=== PATIENT | male | born 1960 | race African-American/Black ===

== ENCOUNTER 2020-05-09 14:27 | Outpatient (CLI) | payer OTHER | END 2020-05-09 14:28 | disposition home or self-care (01) | LOC: CARD 14:27 | PROVIDERS: ATTEND Internal Medicine | DX: I10 Essential (primary) hypertension (principal); E11.9 Type 2 diabetes mellitus without complications; M79.602 Pain in left arm | CPT/HCPCS: 93005 ==

== ENCOUNTER 2021-04-22 09:19 | Emergency (ER) | payer OTHER ==
[2021-04-22 10:59] VITALS: BP 175/68
[2021-04-22] MEDS ORDERED: CYCLOBENZAPRINE 10 MG TAB PO ONE (11:32)
[2021-04-22] MEDS ORDERED: oxyCODONE /ACETAMINOPHEN 5-325MG TAB PO ONE (11:32)
[2021-04-22] MEDS ORDERED: KETOROLAC 30 MG/1 ML INJ IM ONE (11:32)
--- NOTE | 2021-04-22 11:32 | Emergency Department Report ---
ED Back Pain/Injury HPI - General Chief Complaint: Back Pain/Injury Stated Complaint: SEVERE LOWER BACK PAIN x2DAYS Time Seen by Provider: 04/22/21 11:27 Source: patient Limitations: No Limitations - History of Present Illness Initial Comments: CC: back pain HPI: This is a 61 yo male with hx of DM, HTN who presents with severe central lower back pain. Gradual onset yesterday evening. Sharp dull pain 10/10. No treatment attempted at home. He thinks he may have lifted something at work. Pain radiates to RLQ when standing up. Never had pain such as this before. NO hematuria, no leg weakness, no trauma, no fecal/urine incontinence. MD Complaint: back pain -: Gradual, days(s) (yesterday evening worse throughout the night) Similar Symptoms Previously: No Place: home Radiation: other (RLQ) Severity: severe Severity scale (0 -10): 10 Quality: sharp, dull Consistency: constant Improves With: immobilization Worsens With: movement, walking Associated Symptoms: denies other symptoms - Related Data Home Medications Medication Instructions Recorded Confirmed Last Taken Aspirin EC [Halfprin EC] 81 mg PO QDAY 05/26/13 10/22/17 05/23/13 Simvastatin 40 mg PO QDAY 05/26/13 10/22/17 05/24/13 Ergocalciferol [Vitamin D2] 1 cap PO QWEEK 10/22/17 10/22/17 Unknown Insulin NPH Hum/Reg Insulin Hm 30 unit SQ QHS 10/22/17 10/22/17 Unknown [HumuLIN 70-30 Vial] Insulin NPH Hum/Reg Insulin Hm 35 unit SQ QAM 10/22/17 10/22/17 Unknown [HumuLIN 70-30 Vial] hydroCHLOROthiazide [HCTZ] 25 mg PO QDAY 10/22/17 10/22/17 Unknown metFORMIN [Glucophage] 500 mg PO BID 10/22/17 10/22/17 Unknown Previous Rx's Medication Instructions Recorded Last Taken Type Cyclobenzaprine [Flexeril] 10 mg PO TID PRN #30 tablet 04/22/21 Unknown Rx Ibuprofen [Motrin 400 MG tab] 400 mg PO QID 5 Days #20 tablet 04/22/21 Unknown Rx oxyCODONE /ACETAMINOPHEN [Percocet 1 tab PO Q6HR PRN #15 tablet 04/22/21 Unknown Rx 5/325] Allergies Allergy/AdvReac Type Severity Reaction Status Date / Time No Known Allergies Allergy Verified 11/27/14 12:49 ED Review of Systems ROS: Stated complaint: SEVERE LOWER BACK PAIN x2DAYS Other details as noted in HPI Comment: All other systems reviewed and negative Constitutional: denies: fever, malaise Respiratory: denies: cough, shortness of breath Cardiovascular: denies: chest pain Gastrointestinal: abdominal pain. denies: nausea, vomiting Musculoskeletal: back pain Neurological: denies: paresthesias ED Past Medical Hx - Past Medical History Previous Medical History?: Yes Hx Hypertension: Yes Hx Congestive Heart Failure: No Hx Diabetes: Yes Hx Asthma: No Hx COPD: No Hx HIV: No - Surgical History Past Surgical History?: Yes Hx Appendectomy: Yes - Social History Smoking Status: Never Smoker Substance Use Type: None - Medications Home Medications: Home Medications Medication Instructions Recorded Confirmed Last Taken Type Aspirin EC [Halfprin EC] 81 mg PO QDAY 05/26/13 10/22/17 05/23/13 History Simvastatin 40 mg PO QDAY 05/26/13 10/22/17 05/24/13 History Ergocalciferol [Vitamin D2] 1 cap PO QWEEK 10/22/17 10/22/17 Unknown History Insulin NPH Hum/Reg Insulin Hm 30 unit SQ QHS 10/22/17 10/22/17 Unknown History [HumuLIN 70-30 Vial] Insulin NPH Hum/Reg Insulin Hm 35 unit SQ QAM 10/22/17 10/22/17 Unknown History [HumuLIN 70-30 Vial] hydroCHLOROthiazide [HCTZ] 25 mg PO QDAY 10/22/17 10/22/17 Unknown History metFORMIN [Glucophage] 500 mg PO BID 10/22/17 10/22/17 Unknown History Cyclobenzaprine [Flexeril] 10 mg PO TID PRN #30 tablet 04/22/21 Unknown Rx Ibuprofen [Motrin 400 MG tab] 400 mg PO QID 5 Days #20 tablet 04/22/21 Unknown Rx oxyCODONE /ACETAMINOPHEN [Percocet 1 tab PO Q6HR PRN #15 tablet 04/22/21 Unknown Rx 5/325] ED Physical Exam - General Limitations: No Limitations General appearance: alert, in no apparent distress, other (appears in discomfort, slowing raising from chair, walking gingerly to treatment room) - Head Head exam: Present: atraumatic, normocephalic - Eye Eye exam: Present: normal appearance - ENT ENT exam: Present: mucous membranes moist - Neck Neck exam: Present: normal inspection, full ROM - Respiratory Respiratory exam: Present: normal lung sounds bilaterally. Absent: respiratory distress, wheezes, rales, rhonchi, stridor - Cardiovascular Cardiovascular Exam: Present: regular rate, normal rhythm, normal heart sounds. Absent: systolic murmur, diastolic murmur, rubs, gallop - GI/Abdominal GI/Abdominal exam: Present: soft, normal bowel sounds. Absent: distended, tenderness, guarding, rebound - Rectal Rectal exam: Present: deferred - Extremities Exam Extremities exam: Present: normal inspection - Back Exam Back exam: Present: muscle spasm, paraspinal tenderness, other (hesitant to flex and extend back). Absent: CVA tenderness (R), CVA tenderness (L), vertebral tenderness - Neurological Exam Neurological exam: Present: alert, oriented X3 - Psychiatric Psychiatric exam: Present: normal affect, normal mood - Skin Skin exam: Present: warm, dry, intact, normal color. Absent: rash ED Course Vital Signs 04/22/21 10:59 Temperature 98.2 F Pulse Rate 67 Respiratory 16 Rate Blood Pressure 175/68 [Right] O2 Sat by Pulse 96 Oximetry ED Medical Decision Making - Radiology Data Radiology results: report reviewed Study Comments [facility] [address] [place] [address] Cat Scan Report Signed Patient: ERIKA MAN MR#: [id number] : 1960 Acct:[id number] Age/Sex: 61 / M ADM Date: 04/22/21 Loc: ED Attending Dr: Ordering Physician: Janelle Rayo MD Date of Service: 04/22/21 Procedure(s): CT lumbar spine wo con Accession Number(s): [id number] cc: Janelle Rayo MD CT lumbar spine wo con INDICATION: lower back pain radiating to right lower quadrant. TECHNIQUE: All CT scans at this location are performed using the following dose modulation technique: Automated exposure control. CONTRAST: None. COMPARISON: None available. FINDINGS: Satisfactory alignment without vertebral compression. The disc spaces are maintained. Anterior osteophytes are present multiple levels. No large disc herniation is seen. Facet DJD is moderately advanced at L4-5. Milder changes are present at L3-L4 and L5-S1. At least moderate grade canal stenosis at L4-L5 on the basis of facet DJD, ligamentous hypertrophy and disc bulging. IMPRESSION: 1. No bony injury or significant disc space narrowing. 2. Stenosis more localized at L4-L5 on the basis of facet DJD, ligamentous hypertrophy and disc bulging. Signer Name: Antonino Montenegro MD Signed: 04/22/2021 12:39 PM Workstation Name: [id number] Transcribed By: ES Dictated By: Antonino Montenegro MD Electronically Authenticated By: Antonino Montenegro MD Signed Date/Time: 04/22/21 1239 DD/ 1235 Patient Name: ERIKA MAN Gender: Male Date of : 1960 Referring Provider: JANELLE ABERNATHY Organization: [facility] Accession Number: [id number] Requested Date: April 22, 2021 11:27 Report Status: Final Requested Procedure: 1 Procedure Description: CT abdomen pelvis wo con Modality: CT Findings Reporting MD: Antonino Montenegro Dictation Time: April 22, 2021 11:35 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 TECHNIQUE: Axial CT images were obtained through the abdomen and pelvis without IV contrast. All CT scans at this location are performed using CT dose reduction for ALARA by means of automated exposure control. COMPARISON: None available. FINDINGS: LOWER CHEST: Mild mosaic attenuation at the lung bases is most commonly seen in the setting of air trapping. LIVER: No significant abnormality. GALLBLADDER: No significant abnormality. BILE DUCTS: No significant abnormality. PANCREAS: No significant abnormality. SPLEEN: No significant abnormality. ADRENALS: No significant abnormality. RIGHT KIDNEY / URETER: No significant abnormality. LEFT KIDNEY / URETER: Probable small cyst lower pole measuring 1.3 cm. STOMACH / SMALL BOWEL: No significant abnormality. COLON: Moderate stool. APPENDIX: Nonvisualized. PERITONEUM: No free fluid. No free air. No fluid collection. LYMPH NODES: No significant adenopathy. VASCULAR STRUCTURES: No significant abnormality. URINARY BLADDER: Mild symmetric thickening. REPRODUCTIVE ORGANS: Moderate prostate enlargement. ADDITIONAL FINDINGS: None. SKELETAL SYSTEM: No significant abnormality. IMPRESSION: 1. Moderate colonic stool. 2. Negative for obstruction or localized inflammation. 3. Mosaic attenuation at the lung bases is most commonly seen in the setting of air trapping. 4. Prostate enlargement with element of bladder outlet obstruction. Signer Name: Antonino Montenegro MD Signed: 04/22/2021 11:35 AM Workstation Name: [email or web address] - Medical Decision Making This is a 59-year-old male history of hypertension, diabetes mellitus who presents with severe pain. CT lumbar spine revealed lumbar stenosis with degenerative disc disease. I gave patient verbal and written education. I contacted spine surgeon/specialist Dr. Cantu. He will arrange his office staff to contact Mr. Man for appointment. Patient is neurovascularly intact. I have prescribed ibuprofen and Percocet Flexeril. He understands return precautions including leg weakness and fecal urinary ncontinence. Patient improved with ED medications which included: IM ketorolac, p.o. Percocet and p.o. Flexeril. Critical care attestation.: If time is entered above; I have spent that time in minutes in the direct care of this critically ill patient, excluding procedure time. ED Disposition Clinical Impression: Lumbar stenosis, Herniation of right side of L4-L5 intervertebral disc Disposition: DC-01 TO HOME OR SELFCARE Is pt being admited?: No Does the pt Need Aspirin: No Condition: Stable Instructions: Spinal Stenosis, Degenerative Disk Disease Prescriptions: Cyclobenzaprine [Flexeril] 10 mg PO TID PRN #30 tablet PRN Reason: Muscle Spasm Ibuprofen [Motrin 400 MG tab] 400 mg PO QID 5 Days #20 tablet oxyCODONE /ACETAMINOPHEN [Percocet 5/325] 1 tab PO Q6HR PRN #15 tablet PRN Reason: Pain Referrals: ELDON CANTU II, MD [Staff Physician] - 2-3 Days
--- NOTE | 2021-04-22 12:39 | Cat Scan Report ---
CT ABDOMEN AND PELVIS WITHOUT CONTRAST INDICATION / CLINICAL INFORMATION: lower back pain radiating to right lower quadrant. TECHNIQUE: Axial CT images were obtained through the abdomen and pelvis without IV contrast. All CT scans at this location are performed using CT dose reduction for ALARA by means of automated exposure control. COMPARISON: None available. FINDINGS: LOWER CHEST: Mild mosaic attenuation at the lung bases is most commonly seen in the setting of air tr apping. LIVER: No significant abnormality. GALLBLADDER: No significant abnormality. BILE DUCTS: No significant abnormality. PANCREAS: No significant abnormality. SPLEEN: No significant abnormality. ADRENALS: No significant abnormality. RIGHT KIDNEY / URETER: No significant abnormality. LEFT KIDNEY / URETER: Probable small cyst lower pole measuring 1.3 cm. STOMACH / SMALL BOWEL: No significant abnormality. COLON: Moderate stool. APPENDIX: Nonvisualized. PERITONEUM: No free fluid. No free air. No fluid collection. LYMPH NODES: No significant adenopathy. VASCULAR STRUCTURES: No significant abnormality. URINARY BLADDER: Mild symmetric thickening. REPRODUCTIVE ORGANS: Moderate prostate enlargement. ADDITIONAL FINDINGS: None. SKELETAL SYSTEM: No significant abnormality. IMPRESSION: 1. Moderate colonic stool. 2. Negative for obstruction or localized inflammation. 3. Mosaic attenuation at the lung bases is most commonly seen in the setting of air trapping. 4. Prostate enlargement with element of bladder outlet obstruction. Signer Name: Antonino Montenegro MD Signed: 04/22/2021 12:35 PM Workstation Name: [id number]
--- NOTE | 2021-04-22 12:43 | Cat Scan Report ---
CT lumbar spine wo con INDICATION: lower back pain radiating to right lower quadrant. TECHNIQUE: All CT scans at this location are performed using the following dose modulation technique: Automated exposure control. CONTRAST: None. COMPARISON: None available. FINDINGS: Satisfactory alignment without vertebral compression. The disc spaces are maintained. Anter ior osteophytes are present multiple levels. No large disc herniation is seen. Facet DJD is moderately advanced at L4-5. Milder changes are presen t at L3-L4 and L5-S1. At least moderate grade canal stenosis at L4-L5 on the basis of facet DJD, ligamentous hypertrophy an d disc bulging. IMPRESSION: 1. No bony injury or significant disc space narrowing. 2. Stenosis more localized at L4-L5 on the basis of facet DJD, ligamentous hypertrophy and disc bulgi ng. Signer Name: Antonino Montenegro MD Signed: 04/22/2021 12:39 PM Workstation Name: [id number]
== END 2021-04-22 13:44 | disposition home or self-care (01) ==
LOC: ED 09:19
DX: M48.061 Spinal stenosis, lumbar region without neurogenic claudication (principal); M51.26 Other intervertebral disc displacement, lumbar region; R10.32 Left lower quadrant pain; E11.9 Type 2 diabetes mellitus without complications; I10 Essential (primary) hypertension; Z90.49 Acquired absence of other specified parts of digestive tract; Z79.82 Long term (current) use of aspirin; Z79.899 Other long term (current) drug therapy
CPT/HCPCS: 72131; 74176; 82962; 96372; 99284; J1885

== ENCOUNTER 2021-11-22 17:59 | Emergency (ER) | payer OTHER ==
[2021-11-22 18:19] VITALS: BP 139/60
[2021-11-22] MEDS ORDERED: ACETAMINOPHEN 500 MG TAB PO ONE (22:37)
--- NOTE | 2021-11-22 22:55 | Emergency Department Report ---
ED Fall HPI - General Chief Complaint: Fall Stated Complaint: HEAD INJURY Time Seen by Provider: 11/22/21 22:35 Source: patient Mode of arrival: Ambulatory - History of Present Illness Initial Comments: Patient 61-year-old male who presents status post ground-level fall impacting his left parietal head. Patient with notable bruising and swelling. Patient denies LOC, patient was immediately amatory after fall and moving on his own power. Patient states he tripped while going to the mailbox. Drove self to ED tonight patient is alert oriented x3 and amatory with steady gait. Patient does complain of 5/10 headache described as throbbing aching and posterior neck pain 5/10 exacerbated by movement. Patient denies dizziness, no nausea no vomiting. No decrease or loss of vision. Patient has history of diabetes type 2. There is no active bleeding or open wound noted at this time. Patient denies other exacerbating or relieving factors. MD Complaint: fall - Related Data Home Medications Medication Instructions Recorded Confirmed Last Taken Aspirin EC [Halfprin EC] 81 mg PO QDAY 05/26/13 10/22/17 05/23/13 Simvastatin 40 mg PO QDAY 05/26/13 10/22/17 05/24/13 Ergocalciferol [Vitamin D2] 1 cap PO QWEEK 10/22/17 10/22/17 Unknown Insulin NPH Hum/Reg Insulin Hm 30 unit SQ QHS 10/22/17 10/22/17 Unknown [HumuLIN 70-30 Vial] Insulin NPH Hum/Reg Insulin Hm 35 unit SQ QAM 10/22/17 10/22/17 Unknown [HumuLIN 70-30 Vial] hydroCHLOROthiazide [HCTZ] 25 mg PO QDAY 10/22/17 10/22/17 Unknown metFORMIN [Glucophage] 500 mg PO BID 10/22/17 10/22/17 Unknown Previous Rx's Medication Instructions Recorded Last Taken Type Cyclobenzaprine [Flexeril] 10 mg PO TID PRN #30 tablet 04/22/21 Unknown Rx Ibuprofen [Motrin 400 MG tab] 400 mg PO QID 5 Days #20 tablet 04/22/21 Unknown Rx oxyCODONE /ACETAMINOPHEN [Percocet 1 tab PO Q6HR PRN #15 tablet 04/22/21 Unknown Rx 5/325] Acetaminophen/Codeine [Tylenol 1 tab PO Q6H PRN #12 tab 11/23/21 Unknown Rx /Codeine # 3 tab] Allergies Allergy/AdvReac Type Severity Reaction Status Date / Time No Known Allergies Allergy Verified 11/27/14 12:49 ED Review of Systems ROS: Stated complaint: HEAD INJURY Other details as noted in HPI Constitutional: denies: chills, fever Eyes: denies: eye pain, eye discharge, vision change ENT: denies: ear pain, throat pain Respiratory: denies: cough, shortness of breath, wheezing Cardiovascular: as per HPI Endocrine: no symptoms reported Gastrointestinal: as per HPI Genitourinary: denies: urgency, dysuria Musculoskeletal: other (Neck pain) Skin: other (Abrasion left anterior parietal head) Neurological: headache. denies: weakness, numbness, paresthesias, confusion, vertigo Psychiatric: denies: anxiety, depression Hematological/Lymphatic: denies: easy bleeding, easy bruising ED Past Medical Hx - Past Medical History Hx Hypertension: Yes Hx Congestive Heart Failure: No Hx Diabetes: Yes Hx Asthma: No Hx COPD: No Hx HIV: No - Surgical History Hx Appendectomy: Yes - Social History Smoking Status: Never Smoker Substance Use Type: None - Medications Home Medications: Home Medications Medication Instructions Recorded Confirmed Last Taken Type Aspirin EC [Halfprin EC] 81 mg PO QDAY 05/26/13 10/22/17 05/23/13 History Simvastatin 40 mg PO QDAY 05/26/13 10/22/17 05/24/13 History Ergocalciferol [Vitamin D2] 1 cap PO QWEEK 10/22/17 10/22/17 Unknown History Insulin NPH Hum/Reg Insulin Hm 30 unit SQ QHS 10/22/17 10/22/17 Unknown History [HumuLIN 70-30 Vial] Insulin NPH Hum/Reg Insulin Hm 35 unit SQ QAM 10/22/17 10/22/17 Unknown History [HumuLIN 70-30 Vial] hydroCHLOROthiazide [HCTZ] 25 mg PO QDAY 10/22/17 10/22/17 Unknown History metFORMIN [Glucophage] 500 mg PO BID 10/22/17 10/22/17 Unknown History Cyclobenzaprine [Flexeril] 10 mg PO TID PRN #30 tablet 04/22/21 Unknown Rx Ibuprofen [Motrin 400 MG tab] 400 mg PO QID 5 Days #20 tablet 04/22/21 Unknown Rx oxyCODONE /ACETAMINOPHEN [Percocet 1 tab PO Q6HR PRN #15 tablet 04/22/21 Unknown Rx 5/325] Acetaminophen/Codeine [Tylenol 1 tab PO Q6H PRN #12 tab 11/23/21 Unknown Rx /Codeine # 3 tab] ED Physical Exam - General Limitations: No Limitations General appearance: alert, in no apparent distress - Head Head exam: Present: normocephalic, normal inspection - Expanded Head Exam Expanded Head exam: Present: abrasion, contusion (Left lateral parietal). Absent: hematoma, racoon eyes, salomon's sign, general tenderness, tenderness of temporal artery - Eye Eye exam: Present: PERRL, EOMI. Absent: conjunctival injection, nystagmus Pupils: Present: normal accommodation - ENT ENT exam: Present: normal orophraynx, mucous membranes moist, TM's normal bilaterally, normal external ear exam - Neck Neck exam: Present: normal inspection, tenderness (Mild paraspinous muscular pain to deep palpation range of motion intact unrestricted in all quadrants no ecchymosis no swelling no bruises no deformity), full ROM. Absent: meningismus - Expanded Neck Exam Expanded Neck exam: Absent: midline deformity, anterior neck swelling, thyroid mass, carotid bruit, tracheal deviation - Respiratory Respiratory exam: Present: normal lung sounds bilaterally. Absent: respiratory distress, wheezes, stridor, chest wall tenderness - Cardiovascular Cardiovascular Exam: Present: regular rate, normal rhythm, normal heart sounds. Absent: systolic murmur, diastolic murmur, rubs, gallop - GI/Abdominal GI/Abdominal exam: Present: soft, normal bowel sounds. Absent: distended, tenderness, guarding, rebound, rigid, bruit, hernia - Rectal Rectal exam: Present: deferred - Extremities Exam Extremities exam: Present: normal inspection, full ROM, tenderness (Abrasion left anterior knee), normal capillary refill - Expanded Lower Extremity Exam Left Knee exam: Present: abrasion, full knee extension. Absent: laceration, ecchymosis, deformity, crepidus, dislocation, erythema, effusion, pain w/ pronation/supination, posterior draw sign, pain/laxity with valgus, pain/laxity with varus Lower Leg exam: Present: full ROM. Absent: tenderness, swelling Ankle exam: Present: full ROM. Absent: tenderness, swelling Foot/Toe exam: Present: full ROM. Absent: tenderness, swelling Neuro vascular tendon exam: Absent: pulse deficit, motor deficit, sensory deficit, tendon deficit Gait: Positive: observed and normal - Back Exam Back exam: Present: normal inspection, full ROM. Absent: paraspinal tenderness, vertebral tenderness - Neurological Exam Neurological exam: Present: alert, oriented X3, CN II-XII intact, normal gait, reflexes normal. Absent: motor sensory deficit - Expanded Neurological Exam Expanded Patient oriented to: Present: person, place, time Speech: Present: fluid speech Cranial nerves: EOM's Intact: Normal, Gag Reflex: Normal, Tongue Deviation: Normal, Nystagmus: Normal Cerebellar function: Finger to Nose: Normal Motor strength exam: RUE: 5, LUE: 5, RLE: 5, LLE: 5 Best Eye Response ([place]): (4) open spontaneously Best Motor Response ([place]): (6) obeys commands Best Verbal Response ([place]): (5) oriented [place] Total: 15 - Psychiatric Psychiatric exam: Present: normal affect, normal mood - Skin Skin exam: Present: warm, dry, intact, normal color. Absent: rash ED Course Vital Signs 11/22/21 11/22/21 18:18 22:54 Temperature 98.3 F Pulse Rate 71 Respiratory 18 14 Rate Blood Pressure 139/60 O2 Sat by Pulse 98 Oximetry ED Medical Decision Making - Radiology Data Radiology results: report reviewed, image reviewed CT CERVICAL SPINE WITHOUT CONTRAST INDICATION / CLINICAL INFORMATION: Fall with neck injury. TECHNIQUE: Axial CT images were obtained through the cervical spine. Sagittal and coronal reformatted images were produced. All CT scans at this location are performed using CT dose red uction for ALARA by means of automated exposure control. COMPARISON: CT head same date FINDINGS: SKULL BASE: No significant abnormality of the skull base. CRANIOCERVICAL JUNCTION: No significant abnormality of the craniocervical junction. ALIGNMENT: No significant abnormality of alignment. VERTEBRAL BODIES: Vertebral body heights fairly uniform throughout. DISK SPACES: Disk spaces are fairly uniform throughout. FACET JOINTS: Multilevel facet arthropathy with most pronounced hypertrophy at the left facet of C5-6. STENOSIS BY LEVEL: Moderate right neuroforaminal stenosis as a result of uncovertebral joint osteophyte formation at C4-5. CENTRAL CANAL: No significant central stenosis. SOFT TISSUES: No significant abnormality of soft tissues or musculature. THYROID: No significant abnormality. UPPER CHEST: No significant abnormality of the visualized chest. ADDITIONAL FINDINGS: None. IMPRESSION: 1. No acute cervical spine injury. Mild to moderate diffuse degenerative changes. Signer Name: Jenaro Barber II, MD Signed: 11/23/2021 12:02 AM Workstation Name: [id number] Transcribed By: MYLES Dictated By: JENARO BARBER II, MD Electronically Authenticated By: JENARO BARBER II, MD Signed Date/Time: 11/23/21 0002 DD/ 0001 TD/TT: CT HEAD WITHOUT CONTRAST INDICATION / CLINICAL INFORMATION: Fall with Head injury. TECHNIQUE: CT of the head was performed without administration of intravenous contrast. All CT scans at this location are performed using CT dose reduction for ALARA by means of automated exposur e control. COMPARISON: None available. FINDINGS: CEREBRAL PARENCHYMA: No significant abnormality. No acute territorial infarct. HEMORRHAGE: None. EXTRA-AXIAL SPACES: Normal in size and morphology for the patient's age. VENTRICULAR SYSTEM: Normal in size and morphology for the patient's age. MIDLINE SHIFT / HERNIATION: None. CEREBELLUM / BRAINSTEM: No significant abnormality. ORBITS: Normal as visualized. SOFT TISSUES: No significant abnormality. SKULL: No significant abnormality. PARANASAL SINUSES / MASTOID AIR CELLS: Normal as visualized. ADDITIONAL FINDINGS: None. IMPRESSION: 1. No acute intracranial abnormality. Signer Name: Jenaro Barber II, MD Signed: 11/23/2021 12:01 AM Workstation Name: [id number] Transcribed By: MYLES Dictated By: JENARO BARBER II, MD Electronically Authenticated By: JENARO BARBER II, MD Signed Date/Time: 11/23/21 0001 DD/ 0000 TD/TT: - Medical Decision Making CT head normal no mass no bleed no soft tissue abnormality except abrasion. CT C-spine chronic degenerative changes no acute fracture no soft tissue abnormality. Plan DC to home, diagnosis fall, closed head injury precautions given patient verbalized understanding of same. Abrasion scalp. Patient DC'd home in stable condition at this time. Pain is improved. Patient is alert oriented x3 patient amatory with steady gait with no acute distress there are no neuro deficits at this time headache is relieved. Critical care attestation.: If time is entered above; I have spent that time in minutes in the direct care of this critically ill patient, excluding procedure time. ED Disposition Clinical Impression: Abrasion, scalp w/o infection, Neck muscle strain Fall Qualifiers: Encounter type: initial encounter Qualified Code(s): W19.XXXA - Unspecified fall, initial encounter Minor head injury Qualifiers: Encounter type: initial encounter Qualified Code(s): S09.90XA - Unspecified injury of head, initial encounter Disposition: HOME / SELF CARE / HOMELESS Is pt being admited?: No Does the pt Need Aspirin: No Condition: Stable Instructions: Head Injury, Adult, [id number], Abrasion, [id number], Cervical Strain and Sprain Rehab-Sports[facility] Additional Instructions: Follow-up with your doctor in 2 to 3 days. Take medications as prescribed as needed for pain. Return to emergency department should symptoms worsen. Prescriptions: Acetaminophen/Codeine [Tylenol /Codeine # 3 tab] 1 tab PO Q6H PRN #12 tab PRN Reason: pain Referrals: EL SHER MD [Staff Physician] - 3-5 Days Forms: Work/School Release Form(ED) Time of Disposition: 00:39
--- NOTE | 2021-11-23 00:05 | Cat Scan Report ---
CT HEAD WITHOUT CONTRAST INDICATION / CLINICAL INFORMATION: Fall with Head injury. TECHNIQUE: CT of the head was performed without administration of intravenous contrast. All CT scans at this location are performed using CT dose reduction for ALARA by means of automated exposure contr ol. COMPARISON: None available. FINDINGS: CEREBRAL PARENCHYMA: No significant abnormality. No acute territorial infarct. HEMORRHAGE: None. EXTRA-AXIAL SPACES: Normal in size and morphology for the patient's age. VENTRICULAR SYSTEM: Normal in size and morphology for the patient's age. MIDLINE SHIFT / HERNIATION: None. CEREBELLUM / BRAINSTEM: No significant abnormality. ORBITS: Normal as visualized. SOFT TISSUES: No significant abnormality. SKULL: No significant abnormality. PARANASAL SINUSES / MASTOID AIR CELLS: Normal as visualized. ADDITIONAL FINDINGS: None. IMPRESSION: 1. No acute intracranial abnormality. Signer Name: Bennett Noel II, MD Signed: 11/23/2021 12:01 AM Workstation Name: [id number]
--- NOTE | 2021-11-23 00:07 | Cat Scan Report ---
CT CERVICAL SPINE WITHOUT CONTRAST INDICATION / CLINICAL INFORMATION: Fall with neck injury. TECHNIQUE: Axial CT images were obtained through the cervical spine. Sagittal and coronal reformatted images were produced. All CT scans at this location are performed using CT dose reduction for ALARA by means of automated exposure control. COMPARISON: CT head same date FINDINGS: SKULL BASE: No significant abnormality of the skull base. CRANIOCERVICAL JUNCTION: No significant abnormality of the craniocervical junction. ALIGNMENT: No significant abnormality of alignment. VERTEBRAL BODIES: Vertebral body heights fairly uniform throughout. DISK SPACES: Disk spaces are fairly uniform throughout. FACET JOINTS: Multilevel facet arthropathy with most pronounced hypertrophy at the left facet of C5-6 . STENOSIS BY LEVEL: Moderate right neuroforaminal stenosis as a result of uncovertebral joint osteophy te formation at C4-5. CENTRAL CANAL: No significant central stenosis. SOFT TISSUES: No significant abnormality of soft tissues or musculature. THYROID: No significant abnormality. UPPER CHEST: No significant abnormality of the visualized chest. ADDITIONAL FINDINGS: None. IMPRESSION: 1. No acute cervical spine injury. Mild to moderate diffuse degenerative changes. Signer Name: Bennett Noel II, MD Signed: 11/23/2021 12:02 AM Workstation Name: [id number]
== END 2021-11-23 01:29 | disposition home or self-care (01) ==
LOC: ED 17:59
DX: S09.90XA Unspecified injury of head, initial encounter (principal); I10 Essential (primary) hypertension; E11.8 Type 2 diabetes mellitus with unspecified complications; W19.XXXA Unspecified fall, initial encounter; Y93.89 Activity, other specified; Y92.89 Other specified places as the place of occurrence of the external cause; Y99.8 Other external cause status
CPT/HCPCS: 70450; 72125; 99283

== ENCOUNTER 2021-11-26 13:20 | Outpatient (CLI) | payer OTHER ==
--- NOTE | 2021-11-26 17:53 | Magnetic Resonance Report ---
MRI LUMBAR SPINE 11/26/2021 INDICATION / CLINICAL INFORMATION: Low back pain. COMPARISON: None available. FINDINGS: GENERAL OBSERVATIONS: Unenhanced MR images of the lumbar spine were obtained. There is no evidence of acute abnormality. Vertebral body height and alignment is well preserved. [id number] ANALYSIS: L5-S1: Minimal symmetric diffuse disc bulging and mild facet degenerative changes. L4-5: Moderate diffuse disc bulging and facet degenerative changes superimposed on developmentally na rrow canal. This results in severe stenosis of the central canal. Osteophyte formation is slightly mo re pronounced associated with the left facet joint, with possible superimposed left lateral recess na rrowing. This the patient have any clinical evidence of left L5 radiculopathy L3-4: Minimal diffuse disc bulging. L2-3: Minimal diffuse disc bulging. L1-2: Unremarkable. BONE MARROW: No significant abnormality. SPINAL CORD/CAUDA EQUINA: Normal PARASPINAL SOFT TISSUES: No significant abnormality. IMPRESSION: Degenerative changes as described above. Canal stenosis with subtle left lateralization at L4-5. Signer Name: Leroy Roa MD Signed: 11/26/2021 5:49 PM Workstation Name: [id number]
== END 2021-11-26 13:21 | disposition home or self-care (01) ==
LOC: MRI 13:20
PROVIDERS: ATTEND Psychiatry & Neurology Neurology
DX: M51.37 Other intervertebral disc degeneration, lumbosacral region (principal); M25.78 Osteophyte, vertebrae; M54.42 Lumbago with sciatica, left side
CPT/HCPCS: 72148